=== PATIENT | female | born 1970 | race Caucasian/White ===

== ENCOUNTER 2017-04-04 06:56 | Emergency (ER) | payer OTHER ==
[~2017-04-04] VITALS: Ht 172.7 cm; Wt 70.3 kg
[~2017-04-04 06:56] MED LIST: VICODIN5-300 PO
--- NOTE | 2017-04-04 07:16 | ED DYSPNEA/ASTHMA COMPLAINT ---
History of Present Illness General Chief Complaint: Chest Pain Stated Complaint: URI,CP AND CHEST TIGHTNESS Source: patient, old records Exam Limitations: no limitations Vital Signs & Intake/Output Vital Signs & Intake/Output Vital Signs Date Time Temp Pulse Resp B/P B/P Pulse O2 O2 Flow FiO2 Mean Ox Delivery Rate 04/04 0817 97 04/04 0723 96 04/04 0710 100 Room Air 04/04 0706 96.1 73 18 132/85 100 Room Air Allergies Coded Allergies: NO KNOWN ALLERGIES (04/25/13) Reconcile Medications Albuterol Sulfate (Proair Hfa) 90 MCG HFA.AER.AD 2 PUF INH Q4-6 PRN PRN BRONCHITIS Azithromycin (Zithromax) 250 MG TABLET 1 DP PO AD BRONCHITIS 2 the first day followed by 1 for days 2-5 Prednisone 10 MG TABLET 1 TAB PO DAILY BRONCHITIS TAKE 4 TABS FOR 3 DAYS THEN TAKE 3 TABS FOR 3 DAYS THEN TAKE 2 TABS FOR 3 DAYS THEN TAKE 1 TAB FOR 3 DAYS Triage Note: 46 Y/O FEMALE C/O CHEST AND BACK "TIGHTNESS" SINCE SATURDAY. STATES "I DONT KNOW IF ITS BECAUSE OF MY ALLERGIES BUT I FEEL WHEEZING WHEN I LAY DOWN". C/O FEELING SOB WELL. DENIES OTHER COMPLAINTS. EKG COMPLETED PRIOR TO TRIAGE Triage Nurses Notes Reviewed? yes : No Patient currently breastfeeds: No HPI: Patient presents with shortness of breath, nonproductive cough and chest tightness worsening since Saturday evening. Patient states that she feels like her chest is in a vice. That sensation worsens when she attempts to take a deep breath. There is no orthopnea or dyspnea on exertion. The cough is nonproductive and very dry sounding. There are no fevers or chills. There is no sinus congestion or postnasal drip. There is no headache or blurry vision. There is no nausea or vomiting. She rates the tightness at 6 out of 10. Past History Travel History Traveled to [place] past 21 day No Medical History Any Pertinent Medical History? 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 No Review of Systems Review of Systems Constitutional: Reports: no symptoms. EENTM: Reports: no symptoms. Respiratory: Reports: see HPI, cough, short of breath, wheezing. Cardiovascular: Reports: see HPI, chest pain (TIGHTNESS). GI: Reports: no symptoms. Genitourinary: Reports: no symptoms. Musculoskeletal: Reports: no symptoms. Skin: Reports: no symptoms. Neurological/Psychological: Reports: no symptoms. Hematologic/Endocrine: Reports: no symptoms. Immunologic/Allergic: Reports: no symptoms. All Other Systems: Reviewed and Negative Physical Exam Physical Exam General Appearance: well developed/nourished, alert, awake, anxious, moderate distress Head: atraumatic, normal appearance Eyes: Bilateral: PERRL, EOMI. Ears, Nose, Throat: normal pharynx, normal ENT inspection, hearing grossly normal Neck: normal inspection, supple, full range of motion Respiratory: chest non-tender, decreased breath sounds, wheezing, respiratory distress Cardiovascular: regular rate/rhythm, normal peripheral pulses Gastrointestinal: normal bowel sounds, soft, non-tender Extremities: normal inspection, normal capillary refill, normal range of motion, no edema Neurologic/Psych: no motor/sensory deficits, awake, alert, oriented x 3, normal gait, normal mood/affect Skin: intact, normal color, warm/dry Lymphatic: no anterior cervical woodrow Core Measures ACS in differential dx? Yes ASA ordered for poss ACS? No-ACS ruled out Severe Sepsis Present: No Septic Shock Present: No Progress Differential Diagnosis: asthma, AMI, bronchitis, costochondritis, COPD, pulmonary embolism, pneumonia, pneumothorax Plan of Care: Orders Procedure Date/time Status TROPONIN LEVEL 04/04 0716 Complete COMPREHENSIVE METABOLIC PANEL 04/04 0716 Complete CBC WITHOUT DIFFERENTIAL 04/04 0716 Complete EKG 04/04 0658 Active Current Medications Sig/Len Start time Last Medication Dose Stop Time Status Admin Prednisone 60 MG ONCE ONE 04/04 08 UNVr 04/04 0831 Albuterol Sulfate 3 ML ONCE ONE 04/04 0815 UNVr 04/04 (Proventil) 04/04 0816 0817 Laboratory Tests 04/04/17 0720: Anion Gap 12, Estimated GFR > 60, BUN/Creatinine Ratio 20.0, Glucose 91, Calcium 9.2, Total Bilirubin 0.8, AST 19, ALT 35, Alkaline Phosphatase 68, Troponin I < 0.01, Total Protein 7.3, Albumin 4.4, Globulin 2.9, Albumin/Globulin Ratio 1.5, CBC w Diff NO MAN DIFF REQ, RBC 4.94, MCV 84.9, MCH 28.7, RDW 12.6, MPV 7.5, Gran % 49.0, Lymphocytes % 39.6, Monocytes % 6.4, Eosinophils % 4.5, Basophils % 0.5, Absolute Granulocytes 3.9, Absolute Lymphocytes 3.1, Absolute Monocytes 0.5 , Absolute Eosinophils 0.4, Absolute Basophils 0, PUBS MCHC 33.8 Diagnostic Imaging: Viewed by Me: Radiology Read. Discussed w/RAD: Radiology Read. CXR Impression: PATIENT: SHEY HOROWITZ PRESENT AGE: 46 PATIENT ACCOUNT NO: [id number] : 71 LOCATION: [facility] ORDERING PHYSICIAN: ANASTASIIA BERGER MD SERVICE DATE: 04/04/17 EXAM TYPE: RAD - XRY-CHEST XRAY, PA AND LATERAL EXAMINATION: XR CHEST CLINICAL INFORMATION: Chest tightness and cough COMPARISON: Chest x-ray dated 11/15/2008 TECHNIQUE: 2 views of the chest were obtained. FINDINGS: Stable cardiomediastinal silhouette. Lungs are clear. Bony thorax is intact. IMPRESSION: No acute pulmonary disease. DICTATED BY: DAWIT NORTON MD DATE/TIME DICTATED:04/04/17809 LITHOPONE MILL WORKER:AMANDA DATE/TIME TRANSCRIBED:04/04/17809 CONFIDENTIAL, DO NOT COPY WITHOUT APPROPRIATE AUTHORIZATION. <Electronically signed in Other Vendor System> SIGNED BY: DAWIT NORTON MD 04/04/17814 Initial ED EKG: NSR, no ST T wave changes Comments: Patient is sounding much better with better air entry after the DuoNeb. Patient still has a mild expiratory wheeze but her lung sounds are much improved and her symptoms have resolved. There is no further chest tightness. Departure Departure Disposition: HOME OR SELF CARE Condition: Stable Clinical Impression Primary Impression: Bronchitis Referrals: KEIRA GRANGER (PCP/Family) Additional Instructions: Bronchitis of viral infection the vast majority of the time. Use the inhaler and take the steroids as prescribed. If you're not feeling better in 2 days then take the antibiotic that has been prescribed. Return for any concerns. Departure Forms: Customer Survey General Discharge Information Prescriptions: Current Visit Scripts Prednisone 1 TAB PO DAILY #30 TAB TAKE 4 TABS FOR 3 DAYS THEN TAKE 3 TABS FOR 3 DAYS THEN TAKE 2 TABS FOR 3 DAYS THEN TAKE 1 TAB FOR 3 DAYS Albuterol Sulfate (Proair Hfa) 2 PUF INH Q4-6 PRN PRN BRONCHITIS #1 INHAL Azithromycin (Zithromax) 1 DP PO AD #6 TAB 2 the first day followed by 1 for days 2-5 Critical Care Note Critical Care Note Critical Care Time: non-applicable
[2017-04-04 07:41] LABS: ABSOLUTE EOSINOPHIL COUNT 0.4 /CUMM (0.0-0.7); ABSOLUTE MONOCYTE COUNT 0.5 /CUMM (0.10-0.60); MEAN PLATELET VOLUME 7.5 FL (7.4-10.4)
[2017-04-04 07:43] LABS: ABSOLUTE BASOPHIL COUNT 0 /CUMM (0.0-0.2); ABSOLUTE GRANULOCYTE CT 3.9 /CUMM (1.4-6.5); ABSOLUTE LYMPH COUNT 3.1 /CUMM (1.2-3.4); BASOPHIL % 0.5 % (0.0-2.0); EOSINOPHIL % 4.5 % (0-5); MEAN CORPUSCULAR HGB 28.7 PG (27.0-31.0); MEAN CORPUSCULAR HGB CONC 33.8 G/DL (33.0-37.0); MEAN CORPUSCULAR VOLUME 84.9 FL (81.0-99.0); PLATELET COUNT 352 /CUMM (130-400); RBC DISTRIBUTION WIDTH 12.6 % (11.5-14.5); RED BLOOD CELL CT 4.94 /CUMM (4.20-5.40); WHITE BLOOD CELL COUNT 7.9 /CUMM (4.8-10.8)
--- NOTE | 2017-04-04 08:15 | RADIOLOGY REPORT ---
EXAMINATION: XR CHEST CLINICAL INFORMATION: Chest tightness and cough COMPARISON: Chest x-ray dated 11/15/2008 TECHNIQUE: 2 views of the chest were obtained. FINDINGS: Stable cardiomediastinal silhouette. Lungs are clear. Bony thorax is intact. IMPRESSION: No acute pulmonary disease.
[2017-04-04] MEDS ORDERED: PREDNISONE10 M2 PO (08:22)
[2017-04-04] MEDS ORDERED: ZITHROMAX250 M2 PO (08:22)
[2017-04-04] MEDS ORDERED: PROAIR HFA8.5 GM INH (08:22)
[2017-04-04 08:27] VITALS: BP 120/70
== END 2017-04-04 08:28 ==
LOC: ERH 06:56
PROVIDERS: Emergency Medicine
DX: J40 Bronchitis, not specified as acute or chronic (principal)
CPT/HCPCS: 1263; 93005; 93010

== ENCOUNTER 2018-04-22 15:20 | Inpatient (IN) | payer OTHER ==
[~2018-04-22] VITALS: Ht 167.6 cm; Wt 72.6 kg
[~2018-04-22 15:20] MED LIST changes: +AUGMENTIN 875-1 EACH PO; +FLUOCINONIDE15 G2 TOP; +PREDNISONE10 M2 PO; +PROAIR HFA8.5 GM INH; +ZITHROMAX250 M2 PO
[2018-04-22 16:06] LABS: ABSOLUTE BASOPHIL COUNT 0 /CUMM (0.0-0.2); ABSOLUTE EOSINOPHIL COUNT 0.7 /CUMM (0.0-0.7); ABSOLUTE GRANULOCYTE CT 5.8 /CUMM (1.4-6.5); ABSOLUTE LYMPH COUNT 2.6 /CUMM (1.2-3.4); ABSOLUTE MONOCYTE COUNT 0.6 /CUMM (0.10-0.60); BASOPHIL % 0.4 % (0.0-2.0); GRANULOCYTE % 59.3 % (42.2-75.2); HEMATOCRIT 38.2 % (37-47); MEAN CORPUSCULAR HGB 28.4 PG (27.0-31.0); MEAN CORPUSCULAR HGB CONC 34.3 G/DL (33.0-37.0); MEAN CORPUSCULAR VOLUME 82.9 FL (81.0-99.0); MEAN PLATELET VOLUME 7.6 FL (7.4-10.4); PLATELET COUNT 296 /CUMM (130-400); RBC DISTRIBUTION WIDTH 12.8 % (11.5-14.5); RED BLOOD CELL CT 4.61 /CUMM (4.20-5.40); WHITE BLOOD CELL COUNT 9.7 /CUMM (4.8-10.8)
--- NOTE | 2018-04-22 16:15 | ED SKIN/ALLERGY COMPLAINT ---
History of Present Illness General Chief Complaint: Skin Rash/ Abcess Stated Complaint: SIB WALK IN FOR IV ANTIBIOTICS D/T CELLULITIS Source: patient, old records Exam Limitations: no limitations Vital Signs & Intake/Output Vital Signs & Intake/Output Vital Signs Date Time Temp Pulse Resp B/P B/P Pulse O2 O2 Flow FiO2 Mean Ox Delivery Rate 04/22 1910 98.4 67 18 120/77 100 Room Air 04/22 1658 98.4 68 18 121/64 100 Room Air 04/22 1527 98.2 80 18 133/85 98 Room Air Allergies Coded Allergies: No Known Drug Allergies (Intermediate, NONE KNOWN 08/24/17) Reconcile Medications Amoxicillin/Potassium Clav (Augmentin 875-125 Tablet) 875 MG-125 MG TABLET 1 TAB PO BID CELLULITIS Fluocinonide 0.05 % CREAM..G. 1 LUISA TOP BID CONTACT DERMATITIS apply to affected area(s) Triage Note: PT SENT IN BY WALK IN CLINIC FOR IV ABX. PT STATES SHE WAS SEEN HERE YESTERDAY FOR SAME BUT STATES IT GOT WORSE. Triage Nurses Notes Reviewed? yes Onset: Gradual Duration: getting worse Severity: moderate Severity Numbers: 5 HPI: Patient is a 47-year-old female who presents emergency room with concerns of a unknown suspecting insect bite that occurred 2 days ago to a right mid arm region where she did not remove any insect however since the initial onset of her symptoms there has been a black centralized region of the skin to THE right antecubital fossa and spreading of warmth swelling and pain to her right arm. Patient was evaluated yesterday at [place] emergency room and received blood cultures and IV antibiotics and was given prescription of Augmentin and returns with worsening erythema Denies any fever chills Denies any specific tick bite exposure Past History Travel History Traveled to [place] past 21 day No Medical History Any Pertinent Medical History? 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 No Review of Systems Review of Systems Constitutional: Reports: no symptoms. EENTM: Reports: no symptoms. Respiratory: Reports: no symptoms. Cardiovascular: Reports: no symptoms. GI: Reports: no symptoms. Genitourinary: Reports: no symptoms. Musculoskeletal: Reports: see HPI. Skin: Reports: see HPI. Neurological/Psychological: Reports: no symptoms. Hematologic/Endocrine: Reports: no symptoms. Immunologic/Allergic: Reports: no symptoms. All Other Systems: Reviewed and Negative Physical Exam Physical Exam General Appearance: no apparent distress, alert, comfortable Head: atraumatic Eyes: Bilateral: normal appearance. Ears, Nose, Throat: hearing grossly normal Neck: normal inspection, no midline tenderness Respiratory: normal breath sounds, no respiratory distress Cardiovascular: regular rate/rhythm Peripheral Pulses: 2+ radial (R) Neurologic/Psych: no motor/sensory deficits, awake, alert, oriented x 3 Skin: intact Lymphatic: no anterior cervical woodrow Diagram Body: 1) NOTED 3-5 MM CIRCULAR BLACK ULCER FULL AROM WITH FLEXION/EXTENSION OF ELBOW 2) NOTED erythema warmth and point tenderness 3) Noted erythema warmth and point tenderness 4) No induration or fluctuance or discharge Progress Differential Diagnosis: abscess/cellulitis, allergic reaction, anaphylaxis, angioedema, erythema multiforme, lyme disease, meningitis/sepsis, piyriasis rosea Plan of Care: Orders Procedure Date/time Status Regular Diet 04/23 B Active Misc Message 04/22 1747 Active ED Holding Orders 04/22 1747 Active Vital Signs 04/22 1747 Active Code Status 04/22 1747 Active Admit to inpatient 04/22 1746 Active Add-on Test (ER Only) 04/22 1731 Active EKG 04/22 1707 Active CREATINE PHOSPHOKINASE 04/22 1551 Complete BLOOD CULTURE 04/22 1530 Active LACTIC ACID 04/22 1530 Complete WESTERGREN SED RATE 04/22 1530 Complete COMPREHENSIVE METABOLIC PANEL 04/22 1530 Complete CBC WITHOUT DIFFERENTIAL 04/22 1530 Complete Laboratory Tests 04/22/18 1830: Lactic Acid Cancelled 04/22/18 1551: Anion Gap 13, Estimated GFR > 60, BUN/Creatinine Ratio 15.7, Glucose 88, Lactic Acid 0.9, Calcium 9.2, Total Bilirubin 0.5, AST 20, ALT 32, Alkaline Phosphatase 73, Creatine Kinase 66, Total Protein 7.4, Albumin 4.3, Globulin 3.1, Albumin/ Globulin Ratio 1.4, CBC w Diff NO MAN DIFF REQ, RBC 4.61, MCV 82.9, MCH 28.4, MCHC 34.3, RDW 12.8, MPV 7.6, Gran % 59.3, Lymphocytes % 27.0, Monocytes % 6.3, Eosinophils % 7.0 H, Basophils % 0.4, Absolute Granulocytes 5.8, Absolute Lymphocytes 2.6, Absolute Monocytes 0.6, Absolute Eosinophils 0.7, Absolute Basophils 0, ESR [place] 10 Microbiology 04/22 1551 BLOOD: Blood Culture - RECD 04/22 1542 BLOOD: Blood Culture - RECD Please note 1710 that hospitalist inform me that surgery was paged for concerns of necrotizing fasciitis, I did discuss patient's clinical presentation with the surgical PA who is aware CT scan currently is pending Dr. Sequeira is aware of patient's admission and will consult CT scan currently pending Patient was advised to receive vancomycin and Fortaz for concerns of necrotizing fasciitis Patient has full active range of motion to right upper extremity CT scan was resulted no concerns of significant abscess or necrotizing fasciitis Hospitalist is aware CT scan results Diagnostic Imaging: Viewed by Me: CT Scan. Radiology Impression: SEE COMMENTS Initial ED EKG: normal intervals, normal p-waves Comments: PATIENT: SHEY HOROWITZ PRESENT AGE: 47 PATIENT ACCOUNT NO: [id number] : 71 LOCATION: [facility] ORDERING PHYSICIAN: Wilder FRAZIER SERVICE DATE: 04/22/18 EXAM TYPE: CAT - CT UPPER EXT W IV CONTRAST EXAMINATION: CT UPPER EXTREMITY WITH CONTRAST, right upper arm CLINICAL INFORMATION: Cellulitis. Evaluate for necrotizing fasciitis. COMPARISON: None TECHNIQUE: 95 Optiray 320 intravenous contrast was administered intravenously. Axial images obtained from the proximal upper arm through the mid forearm. A scant of the patient's side. Coronal and sagittal reformatted images are performed at the CT scanner. DLP: 944.72. mGy-cm FINDINGS: There is no inflammation. No abscess collection. There is a small volume of fluid superficial to the muscular fascia at the antecubital fossa. There is no joint effusion. No air collection. Normal enhancement and density of the muscle with normal intermuscular fat planes. No osseous abnormality. There is normal enhancement of the vessels. IMPRESSION: There is a small amount of fluid in the subcutaneous tissue superficial to the muscular fascia at the antecubital fossa but there is no abscess or evidence of necrotizing fasciitis. DICTATED BY: Bertin Domínguez MD DATE/TIME DICTATED:04/22/181952 CASTING COORDINATOR:AMANDA DATE/TIME TRANSCRIBED:04/22/181952 Departure Departure Disposition: STILL A PATIENT Condition: Stable Clinical Impression Primary Impression: Cellulitis of arm, right Referrals: Juana Sotomayor APRN (PCP/Family) Departure Forms: Customer Survey General Discharge Information Admission Note Spoke With: Anoop Felix MD Documentation of Exam: Documentation of any treatments & extenuating circumstances including Concerns Regarding Discharge (functional status, medication knowledge or non-compliance, living conditions, etc.) that warrant an admission rather than observation: [ Patient requires IV antibiotics repeat labs infectious disease consultation surgery consultation for rule out and evaluation of necrotizing fasciitis ] Critical Care Note Critical Care Note Critical Care Time: 30-74 min
--- NOTE | 2018-04-22 20:01 | CT SCAN REPORT ---
EXAMINATION: CT UPPER EXTREMITY WITH CONTRAST, right upper arm CLINICAL INFORMATION: Cellulitis. Evaluate for necrotizing fasciitis. COMPARISON: None TECHNIQUE: 95 Optiray 320 intravenous contrast was administered intravenously. Axial images obtained from the proximal upper arm through the mid forearm. A scant of the patient's side. Coronal and sagittal reformatted images are performed at the CT scanner. DLP: 944.72. mGy-cm FINDINGS: There is no inflammation. No abscess collection. There is a small volume of fluid superficial to the muscular fascia at the antecubital fossa. There is no joint effusion. No air collection. Normal enhancement and density of the muscle with normal intermuscular fat planes. No osseous abnormality. There is normal enhancement of the vessels. IMPRESSION: There is a small amount of fluid in the subcutaneous tissue superficial to the muscular fascia at the antecubital fossa but there is no abscess or evidence of necrotizing fasciitis.
--- NOTE | 2018-04-22 20:22 | History & Physical ---
Hudson Noel MD 04/22/182021: General Information and HPI MD Statement: I have seen and personally examined SHEY HOROWITZ and documented this H&P. The patient is a 47 year old F who presented with a patient stated chief complaint of [cellulitis]. Source of Information: patient Exam Limitations: no limitations History of Present Illness: Patient is a 47-year-old female with a PMH significant for asthma and seasonal allergies who presented to [facility] ED complaining of worsening erythematous rash with itching and pain on her right upper extremity. 2 days prior to presentation patient was working in her front yard and upon entering the house felt a pinch on her right arm, did not notice any insects on her skin. At that time the lesion appeared as an insect bite. When she woke the morning prior to presentation she noticed an erythematous rash spreading on some mild itching which worsened throughout the day and she presented to the [facility] ED was prescribed Augmentin and discharged home. The rash continued to spread, the burning pain and itching worsened and she returned to the ED today. She reports intermittent numbness and tingling of her right upper extremity. She denies any fever, chills, nausea, vomiting, chest pain, shortness of breath. Allergies/Medications Allergies: Coded Allergies: morphine (Mild, ITCHING 04/23/18) Home Med list Amoxicillin/Potassium Clav (Augmentin 875-125 Tablet) 875 MG-125 MG TABLET 1 TAB PO BID CELLULITIS Fluocinonide 0.05 % CREAM..G. 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 Home Services at Home: None Smoking Status: Never Smoked ETOH Use: denies use Illicit Drug Use: denies illicit drug use Functional Ability ADLs Independent: dressing, eating, toileting, bathing. Ambulation: independent IADLs Independent: shopping, housework, finances, food prep, telephone, transportation , medication admin. Review of Systems Review of Systems Constitutional: Denies: chills, fever. EENTM: Denies: blurred vision, double vision, visual changes. Cardiovascular: Denies: chest pain, palpitations, peripheral edema, syncope. Respiratory: Denies: cough, short of breath, sputum production. GI: Denies: diarrhea, melena, nausea, vomiting. Genitourinary: Denies: dysuria, frequency, hematuria. Musculoskeletal: Reports: see HPI. Skin: Reports: rash. Neurological/Psychological: Reports: numbness (LUE, intermittent). Exam & Diagnostic Data Last 24 Hrs of Vital Signs/I&O Vital Signs Date Time Temp Pulse Resp B/P B/P Pulse O2 O2 Flow FiO2 Mean Ox Delivery Rate 04/220 100 Room Air 04/22 2200 97.6 67 16 110/60 100 Room Air 04/22 2113 97.6 66 18 125/77 99 Room Air 04/22 1910 98.4 67 18 120/77 100 Room Air 04/22 1658 98.4 68 18 121/64 100 Room Air 04/22 1527 98.2 80 18 133/85 98 Room Air Intake & Output 04/23 0800 04/23 0000 04/22 1600 Intake Total 300 Output Total Balance 300 Intake, Oral 300 Patient 160 lb 155 lb Weight Weight Reported by Patient Measurement Method Physical Exam General Appearance Alert, Oriented X3, Cooperative, No Acute Distress Skin large erythematous patch on the medial RUE, with puntum near antecubital fossa, with a 2-3 cm area of induration around the punctum warm, no drainage or bullae present Skin Temp/Moisture Exam: Warm/Dry Sepsis Skin Exam (color): Normal for Ethnicity HEENT Atraumatic, PERRLA, EOMI, Mucous Membr. moist/pink Cardiovascular Regular Rate, Normal S1, Normal S2, No Murmurs Lungs Clear to Auscultation, Normal Air Movement Abdomen Normal Bowel Sounds, Soft, No Tenderness Neurological Normal Speech, Strength at 5/5 X4 Ext, Normal Tone, Sensation Intact, Cranial Nerves 3-12 NL Extremities No Clubbing, No Cyanosis, No Edema, Normal Pulses Body Front and Back (Adult) 1) erythmetous patch 2) puntum with surrounding area of induration Last 24 Hrs of Labs/Jimmy: Laboratory Tests 04/22/18 1830: Lactic Acid Cancelled 04/22/18 1551: Anion Gap 13, Estimated GFR > 60, BUN/Creatinine Ratio 15.7, Glucose 88, Lactic Acid 0.9, Calcium 9.2, Total Bilirubin 0.5, AST 20, ALT 32, Alkaline Phosphatase 73, Creatine Kinase 66, Total Protein 7.4, Albumin 4.3, Globulin 3.1, Albumin/ Globulin Ratio 1.4, CBC w Diff NO MAN DIFF REQ, RBC 4.61, MCV 82.9, MCH 28.4, MCHC 34.3, RDW 12.8, MPV 7.6, Gran % 59.3, Lymphocytes % 27.0, Monocytes % 6.3, Eosinophils % 7.0 H, Basophils % 0.4, Absolute Granulocytes 5.8, Absolute Lymphocytes 2.6, Absolute Monocytes 0.6, Absolute Eosinophils 0.7, Absolute Basophils 0, ESR Westergren 10 Microbiology 04/22 1551 BLOOD: Blood Culture - RECD 04/22 1542 BLOOD: Blood Culture - RECD Diagnostic Data EKG Results EKG HR 62, QTc 435 Other Results There is no inflammation. No abscess collection. There is a small volume of fluid superficial to the muscular fascia at the antecubital fossa. There is no joint effusion. No air collection. Normal enhancement and density of the muscle with normal intermuscular fat planes. No osseous abnormality. There is normal enhancement of the vessels. IMPRESSION: There is a small amount of fluid in the subcutaneous tissue superficial to the muscular fascia at the antecubital fossa but there is no abscess or evidence of necrotizing fasciitis. Assessment/Plan Assessment: Patient is a 47-year-old female with a PMH significant for asthma and seasonal allergies who presented to [facility] ED complaining of worsening erythematous rash with itching and pain on her right upper extremity. She felt was possibly an insect bite on her right upper extremity 2 days prior to presentation, she came in to the ED yesterday and was sent home on Augmentin, with no improvement of her rash which continued to spread, itch, burn so she returned today. CT of right arm showed a small amount of fluid in the subcutaneous tissue without abscess or evidence of necrotizing fasciitis. Vitals on presentation: T 98.2, P 80, RR 18, BP 133/85, pulse ox 98% on room air Labs: WBC 9.76, H/H 13.1/38.2, platelets 296, BEP unremarkable Plan -Admit to general medicine -IV Unasyn -Elevate right upper extremity -Of note patient developed significant itching after receiving 1 dose IV morphine morphine for pain control -Continue to monitor regularly for signs of necrotizing fasciitis, if patient spikes significant fever will broaden antibiotic coverage -Attending, Dr. Felix, has discussed case with general surgery Diet: Regular diet DVT prophylaxis: Subcutaneous heparin, Alps CODE STATUS: Full code As Ranked By This Provider Problem List: 1. Cellulitis of arm, right Core Measures/Misc (07/21) Acute Coronary Syndrome ACS Diagnosis: No Congestive Heart Failure Congestive Heart Failure Diagnosis No Cerebrovascular Accident CVA/TIA Diagnosis: No VTE (View Protocol) VTE Risk Factors Age>40 No Mechanical VTE Prophylaxis d/t N/A MechProphylax Ordered No VTE Pharm Prophylaxis d/t NA PharmProphylax ordered Sepsis (View protocol) Sepsis Present: No If YES complete Sepsis Event Note If YES complete Sepsis Event Note Brett Torres 04/22/18 2106: Core Measures/Misc (07/21) Sepsis (View protocol) If YES complete Sepsis Event Note If YES complete Sepsis Event Note Resident Review Statement Resident Statement: examined this patient, discussed with internet marketer, agreed with internet marketer Other Findings: 47 year old woman with pmh significant for asthma and seasonal allergies coming for evaluation of progressively worsening erthymatous rash of her right upper extremity extending from axilla to elbow, of 2 days duration. She apparently working in her yard and on her way back in the house she felt at bite like sensation on her arm. She did not notice and ticks or spiders. Endorses itching, burning of the rash and some tingling of her hand. She intially visited the ED yesterday and was prescribed augmentin with no improvement in her symptoms. Denies any fever, chills, nausea, vomiting, chest pain, myalgias,shortness of breath. Examination as above. Labs unremarkable. CT of right arm showed a small amount of fluid in the subcutaneous tissue without abscess or evidence of necrotizing fascitis. assessment/plan: Cellulitis Admit to general medicine, Elevate right upper extremity will continue IV Unasyn follow up Tick panel and blood cultures She developed significant itching and erthymatous rash on her face after receiving 1 dose IV morphine morphine for pain control, will give IV 50mg benadryl Continue to monitor closely for signs of necrotizing fasciitis, if patient spikes significant fever will broaden antibiotic coverage to vancomycin and clinda. pain control with tylenol for now. Diet: Regular diet DVT prophylaxis: Subcutaneous heparin, Alps CODE STATUS: Full code Isidro SHETTYAnoop 04/22/185: Core Measures/Misc (07/21) Sepsis (View protocol) If YES complete Sepsis Event Note If YES complete Sepsis Event Note Attending MD Review Statement Attending Statement Attending MD Statement: examined this patient, discuss w/resident/PA/STRIKE ON MACHINE OPERATOR, agreed w/resident/PA/STRIKE ON MACHINE OPERATOR, reviewed EMR data (avail) Attending Assessment/Plan: 47F no PMH presenting with cellulitis of RUE. Patient thinks she was bit on the right upper arm 2 days ago, felt a pinch, but did not see an animal or insect. Yesterday, she developed erythema and warmth of the RUE, came to ED, was given Augmentin and discharged home. She returns today with rapid spreading of the erythema of the RUE, now extending from axilla to elbow, with worsening erythema , warmth, and significant pain. ROM is limited by pain. Denies fever, chills, n/ v/d, confusion, chest pain, SOB, abdominal pain. Afebrile here, stable vitals, WBC 9.7. Cultures drawn on initial ED visit negative. Plan: Admit to general medicine, CT arm to r/o necrotizing fasciitis, surgery notified by ER PA and myself, redraw cultures, start Unasyn, arm elevation, monitor borders of erythema, send CK and lactate, low suspicion for transfer to ICU if worsens, DVT PPx.
[2018-04-22 22:00] VITALS: BP 110/60
[2018-04-23 02:27] VITALS: BP 108/60
[2018-04-23 06:20] VITALS: BP 100/56
--- NOTE | 2018-04-23 07:27 | PN- Housestaff ---
Marisa SHETTY,Allison 04/23/18 0727: Subjective Follow-up For: Cellulitis Subjective: Patient was seen and examined today. Patient reports that her on swelling and redness has improved. Patient reports mild pain and itching. Denies fever, chills, nausea/vomiting, abdominal pain, dysuria/hematuria, chest pain, shortness of breath. No acute events overnight. Review of Systems Constitutional: Reports: see HPI. Objective Last 24 Hrs of Vital Signs/I&O Vital Signs Date Time Temp Pulse Resp B/P B/P Pulse O2 O2 Flow FiO2 Mean Ox Delivery Rate 04/23 06 98.3 61 16 100/56 98 Room Air 04/23 0227 98.4 59 16 108/60 97 Room Air 04/23 0000 Room Air 04/22 2200 100 Room Air 04/22 2200 97.6 67 16 110/60 100 Room Air 04/22 2113 97.6 66 18 125/77 99 Room Air 04/22 1910 98.4 67 18 120/77 100 Room Air 04/22 1658 98.4 68 18 121/64 100 Room Air Intake & Output 04/23 1600 04/23 0800 04/23 0000 Intake Total 680 365 300 Output Total Balance 680 365 300 Intake, IV 120 125 Intake, Oral 560 240 300 Patient 160 lb Weight Physical Exam General Appearance: Alert, Oriented X3, Cooperative, No Acute Distress Skin Temp/Moisture Exam: Warm/Dry HEENT: Atraumatic, PERRLA, EOMI, Mucous Membr. moist/pink Cardiovascular: Regular Rate, Normal S1, Normal S2, No Murmurs Lungs: Clear to Auscultation, Normal Air Movement Abdomen: Normal Bowel Sounds, Soft, No Tenderness Neurological: Normal Speech, Strength at 5/5 X4 Ext, Normal Tone, Sensation Intact, Cranial Nerves 3-12 NL Extremities: right upper extremity swelling, black area with minimal induration and erythema which appears to be improving from previous day Vascular: Normal Pulses, Pulses Symmetrical Current Medications: Current Medications Sig/Len Start time Last Medication Dose Route Stop Time Status Admin Acetaminophen 650 MG Q4P PRN 04/23 0230 DCD 04/23 PO 1021 Ampicillin Sodium/ 3,000 MG Q6 04/22 2359 DCD 04/23 Sulbactam Sodium IV 1205 Sodium Chloride 100 ML Ampicillin Sodium/ 0 .STK-MED ONE 04/22 1639 DC Sulbactam Sodium .ROUTE Ampicillin Sodium/ 3,000 MG ONCE ONE 04/22 1600 DC 04/22 Sulbactam Sodium IV 04/22 1629 1654 Sodium Chloride 100 ML Ceftazidime 0 .STK-MED ONE 04/22 1820 DC .ROUTE Ceftazidime 2,000 MG ONCE ONE 04/22 1715 DC 04/22 IV 04/22 171 184 Diphenhydramine HCl 50 MG ONCE ONE 04/22 2115 DC 04/22 IV 04/22 Diphenhydramine HCl 0 .STK-MED ONE 04/22 2113 DC .ROUTE Heparin Sodium 5,000 UNIT Q8 04/23 0136 DCD (Porcine) SC Morphine Sulfate 0 .STK-MED ONE 04/22 1821 DC .ROUTE Morphine Sulfate 4 MG ONCE ONE 04/22 1715 DC 04/22 IV 04/22 1716 184 Vancomycin HCl 0 .STK-MED ONE 04/22 182 DC .ROUTE Vancomycin HCl 1,000 MG ONCE ONE 04/22 1715 DC 04/22 Sodium Chloride 250 ML IV 04/22 181 1847 Last 24 Hrs of Lab/Jimmy Results Last 24 Hrs of Labs/Mics: Laboratory Tests 04/23/18 0742: Anion Gap 10, Estimated GFR > 60, BUN/Creatinine Ratio 21.7, CBC w Diff NO MAN DIFF REQ, RBC 4.26, MCV 83.1, MCH 28.5, MCHC 34.3, RDW 12.7, MPV 7.6, Gran % 47.2, Lymphocytes % 32.1, Monocytes % 8.7, Eosinophils % 11.6 H, Basophils % 0.4, Absolute Granulocytes 2.7, Absolute Lymphocytes 1.8, Absolute Monocytes 0.5 , Absolute Eosinophils 0.7, Absolute Basophils 0 04/22/18 1830: Lactic Acid Cancelled Assessment/Plan Assessment: The patient is a 47-year-old female with past medical history of asthma, seasonal allergies, recently presented to the ED 2 days prior due to right arm swelling after apparently having a bug bite. She was initially sent home on Augmentin however rash continued to spread and patient returned to the ED. Patient in the ED was given a one-time dose of vancomycin and ceftazidime and later started on IV Unasyn for coverage of strep. Patient's symptoms improved and patient has remained afebrile with a normal white blood cell count. Patient 's CT was negative for any findings of necrotizing fasciitis. No significant area of abscess or fluid collection that can be drained. Patient will be sent home today on Keflex to complete a 10 day course. Patient to continue her home medications Patient should follow-up with her PCP this week Patient advised to return to the hospital if her symptoms worsen Problem List: 1. Cellulitis of arm, right Pain Ratin Pain Location: right arm Pain Goal: Pain 4 or less Pain Plan: tylenol PRN Tomorrow's Labs & Rationales: none - discharge today Christopher Hood MDarmenghazal 04/23/18 1254: Attending MD Review Statement Attending Statement Attending MD Statement: examined this patient, discuss w/resident/PA/SKIDDER LEVER OPERATOR, agreed w/resident/PA/SKIDDER LEVER OPERATOR, reviewed EMR data (avail), discussed with nursing, discussed with case mgmt, amended to note Attending Assessment/Plan: Patient seen and examined. Resting comfortably not in any acute distress. Lying comfortably in bed. She presented to the emergency room a day after being evaluated for right upper extremity cellulitis. She reported that she had seen no improvement after a day of oral antibiotics. She arrived afebrile hemodynamically stable. No leukocytosis on her labs. CT imaging of the upper extremity showed no evidence of a collection. With IV antibiotic therapy overnight the area of erythema on the right upper extremity has almost resolved completely. She has a small area of swelling and what appears to be the site of an insect bite. It is not fluctuant. There is no discharge. She has no joint tenderness and has normal range of motion. At this point I think she can safely be transitioned to oral antibiotic therapy to complete 10 days of treatment. I have advised her to follow up with her primary care provider at the end of the week.
[2018-04-23 08:29] LABS: ABSOLUTE BASOPHIL COUNT 0 /CUMM (0.0-0.2); ABSOLUTE EOSINOPHIL COUNT 0.7 /CUMM (0.0-0.7); ABSOLUTE GRANULOCYTE CT 2.7 /CUMM (1.4-6.5); ABSOLUTE LYMPH COUNT 1.8 /CUMM (1.2-3.4); ABSOLUTE MONOCYTE COUNT 0.5 /CUMM (0.10-0.60); BASOPHIL % 0.4 % (0.0-2.0); EOSINOPHIL % 11.6 % (0-5); GRANULOCYTE % 47.2 % (42.2-75.2); HEMATOCRIT 35.4 % (37-47); MEAN CORPUSCULAR HGB 28.5 PG (27.0-31.0); MEAN CORPUSCULAR HGB CONC 34.3 G/DL (33.0-37.0); MEAN CORPUSCULAR VOLUME 83.1 FL (81.0-99.0); MEAN PLATELET VOLUME 7.6 FL (7.4-10.4); PLATELET COUNT 235 /CUMM (130-400); RBC DISTRIBUTION WIDTH 12.7 % (11.5-14.5); RED BLOOD CELL CT 4.26 /CUMM (4.20-5.40); WHITE BLOOD CELL COUNT 5.7 /CUMM (4.8-10.8)
[2018-04-23] MEDS ORDERED: KEFLEX500 M1 PO ×2 (10:44→12:42)
--- NOTE | 2018-04-23 10:47 | Patient Discharge Instructions ---
Discharge Instructions General Discharge Information You were seen/treated for: Cellulitis Special Instructions: Take the complete course of antibiotics as prescribed Follow up with your pcp this week Watch for increasing pain, redness, swelling, fever and discharge. Report any changes to your pcp immediately. Acute Coronary Syndrome Inclusion Criteria At DC or during hospital stay patient has or had the following: ACS DIAGNOSIS No Discharge Core Measures Meds if any: Prescribed or Continued at Discharge Meds if any: NOT Prescribed or Continued at Discharge Congestive Heart Failure Inclusion Criteria At DC or during hospital stay patient has or had the following: CHF DIAGNOSIS No Discharge Core Measures Meds if any: Prescribed or Continued at Discharge Meds if any: NOT Prescribed or Continued at Discharge Cerebrovascular accident Inclusion Criteria At DC or during hospital stay patient has or had the following: CVA/TIA Diagnosis No Discharge Core Measures Meds if any: Prescribed or Continued at Discharge Meds if any: NOT Prescribed or Continued at Discharge Venous thromboembolism Inclusion Criteria VTE Diagnosis No VTE Type NONE VTE Confirmed by (Test) NONE Discharge Core Measures - Per Current guidelines, there needs to be overlap - treatment for the first 5 days of Warfarin therapy. - If discharged on Warfarin prior to 5 days of - overlap therapy, the patient will need to be - assessed for post discharge needs including - *Post discharge parental anticoagulation - *Warfarin and/or parental anticoagulation education - *Follow up date to check INR post discharge At least 5 days overlap therapy as Inpatient No Meds if any: Prescribed or Continued at Discharge Note: Overlap Therapy is Warfarin and Anticoagulant Meds if any: NOT Prescribed or Continued at Discharge
--- NOTE | 2018-04-23 11:25 | Discharge Summary ---
Visit Information Visit Dates Admission Date: 04/22/18 Hospital Course Allergies: Coded Allergies: morphine (Mild, ITCHING 04/23/18) Discharge Instructions Medications at Discharge Discharge Medications: Stop taking the following medications: Amoxicillin/Potassium Clav (Augmentin 875-125 Tablet) 875 MG-125 MG TABLET ORAL TWICE DAILY Qty = 20 Continue taking these medications: Fluocinonide (Fluocinonide) 0.05 % CREAM..G. 1 Application On the skin TWICE DAILY Qty = 15 Instructions: apply to affected area(s) Start taking the following new medications: Cephalexin (Keflex) 500 MG CAPSULE 1 Tablet ORAL EVERY SIX HOURS Qty = 40 No Refills
== END 2018-04-23 13:33 | DRG 383 ==
LOC: ERH 15:20 → 2NA 17:46 → ERHI 17:46 → ENRESERV 20:50 → ENTRNSPT 21:48 → EDTRNSPTSTS 22:00 → 2NA 22:09 → CMPTRNSPT 22:29 → 2NA 04-23 08:40 → ENPENDDIS 04-23 11:35 → ENTRNSPT 04-23 13:23 → EDTRNSPT 04-23 13:27 → EDTRNSPTSTS 04-23 13:27 → 2NA 04-23 13:33 → CMPTRNSPT 04-23 13:36
PROVIDERS: Internal Medicine; Physician Assistant Medical
DX: L03.113 Cellulitis of right upper limb (principal); W57.XXXA Bitten or stung by nonvenomous insect and other nonvenomous arthropods, initial encounter; J45.909 Unspecified asthma, uncomplicated; Z88.5 Allergy status to narcotic agent
CPT/HCPCS: 2NAP; 86317; 87798; 36592; 82436; 87040; 93005; 93010; J0713; J1200; J1644; J3370; J7040